=== PATIENT | female | born 1945 ===

== ENCOUNTER 2019-02-03 09:16 | Outpatient (CLI) | payer MEDICARE ==
[~2019-02-03] VITALS: Ht 157.5 cm; Wt 44.5 kg
== END 2019-02-03 11:16 | disposition home or self-care (01) ==
LOC: ECT 09:16
DX: F33.2 Major depressive disorder, recurrent severe without psychotic features (principal); Z86.711 Personal history of pulmonary embolism; M48.061 Spinal stenosis, lumbar region without neurogenic claudication; E03.9 Hypothyroidism, unspecified; E78.5 Hyperlipidemia, unspecified; G62.9 Polyneuropathy, unspecified; Z91.5 Personal history of self-harm; Z88.8 Allergy status to other drugs, medicaments and biological substances; Z79.01 Long term (current) use of anticoagulants

== ENCOUNTER 2019-02-04 07:40 | Outpatient (RCR) | payer MEDICARE ==
[~2019-02-04] VITALS: Ht 157.5 cm; Wt 44.5 kg
[~2019-02-04 07:40] MED LIST: Methohexital Sodium Syr 100mg/10ml IVP ONE; NS 500ML ONE; Succinylcholine 20mg/ml 10ml vial ONE
[2019-02-04 11:05] VITALS: BP 137/75
[2019-02-04 11:20] VITALS: BP 159/73
[2019-02-04 11:25] VITALS: BP 148/70
[2019-02-04 11:30] VITALS: BP 150/73
[2019-02-04 11:35] VITALS: BP 155/68
[2019-02-04 11:37] VITALS: BP 137/75
[2019-02-06] MEDS ORDERED: Succinylcholine 20mg/ml 10ml vial ONE (08:00)
[2019-02-06] MEDS ORDERED: NS 500ML ONE (08:00)
[2019-02-06] MEDS ORDERED: Methohexital Sodium Syr 100mg/10ml IVP ONE (08:00)
[2019-02-06 08:49] VITALS: BP 133/72
[2019-02-06 09:00] VITALS: BP 151/68
[2019-02-06 09:05] VITALS: BP 145/71
[2019-02-06 09:10] VITALS: BP 155/67
[2019-02-06 09:15] VITALS: BP 155/65
[2019-02-09] MEDS ORDERED: Succinylcholine 20mg/ml 10ml vial ONE (08:00)
[2019-02-09] MEDS ORDERED: NS 500ML ONE (08:00)
[2019-02-09] MEDS ORDERED: Methohexital Sodium Syr 100mg/10ml IVP ONE (08:00)
[2019-02-09 09:14] VITALS: BP 136/77
[2019-02-09 09:30] VITALS: BP 139/69
[2019-02-09 09:35] VITALS: BP 137/67
[2019-02-09 09:40] VITALS: BP 149/63
[2019-02-09 09:45] VITALS: BP 144/62
[2019-02-11] MEDS ORDERED: NS 500ML ONE (06:00)
[2019-02-11] MEDS ORDERED: Succinylcholine 20mg/ml 10ml vial ONE (06:00)
[2019-02-11] MEDS ORDERED: Methohexital Sodium Syr 100mg/10ml IVP ONE (06:00)
[2019-02-11 09:09] VITALS: BP 139/74
[2019-02-11 09:22] VITALS: BP 147/74
[2019-02-11 09:27] VITALS: BP 145/71
[2019-02-11 09:32] VITALS: BP 157/72
[2019-02-11 09:37] VITALS: BP 161/69
[2019-02-13] MEDS ORDERED: Methohexital Sodium Syr 100mg/10ml IVP ONE (06:00)
[2019-02-13] MEDS ORDERED: NS 500ML ONE (06:00)
[2019-02-13] MEDS ORDERED: Succinylcholine 20mg/ml 10ml vial ONE (06:00)
[2019-02-13 08:34] VITALS: BP 127/75
[2019-02-13 08:50] VITALS: BP 151/75
[2019-02-13 08:55] VITALS: BP 142/75
[2019-02-13 09:00] VITALS: BP 135/73
[2019-02-13 09:05] VITALS: BP 137/74
[2019-02-16 09:23] VITALS: BP 129/86
[2019-02-16 09:39] VITALS: BP 163/71
[2019-02-16 09:44] VITALS: BP 148/71
[2019-02-16 09:49] VITALS: BP 143/73
[2019-02-16 09:54] VITALS: BP 144/68
[2019-02-18 08:53] VITALS: BP 132/79
[2019-02-18] MEDS ORDERED: Methohexital Sodium Syr 100mg/10ml IVP ONE (09:00)
[2019-02-18] MEDS ORDERED: NS 500ML ONE (09:00)
[2019-02-18] MEDS ORDERED: Succinylcholine 20mg/ml 10ml vial ONE (09:00)
[2019-02-18 09:07] VITALS: BP 135/73
[2019-02-18 09:12] VITALS: BP 149/81
[2019-02-18 09:17] VITALS: BP 152/74
[2019-02-18 09:22] VITALS: BP 145/79
[2019-02-23] MEDS ORDERED: Succinylcholine 20mg/ml 10ml vial ONE (06:00)
[2019-02-23] MEDS ORDERED: NS 500ML ONE (06:00)
[2019-02-23] MEDS ORDERED: Methohexital Sodium Syr 100mg/10ml IVP ONE (06:00)
[2019-02-23 09:01] VITALS: BP 145/78
[2019-02-23 09:13] VITALS: BP 162/77
[2019-02-23 09:18] VITALS: BP 142/76
[2019-02-23 09:23] VITALS: BP 143/71
[2019-02-23 09:28] VITALS: BP 144/62
[2019-02-24] MEDS ORDERED: Succinylcholine 20mg/ml 10ml vial ONE (06:00)
[2019-02-24] MEDS ORDERED: Methohexital Sodium Syr 100mg/10ml IVP ONE (06:00)
[2019-02-24] MEDS ORDERED: NS 500ML ONE (06:00)
[2019-02-25] MEDS ORDERED: Methohexital Sodium Syr 100mg/10ml IVP ONE (06:00)
[2019-02-25] MEDS ORDERED: NS 500ML ONE (06:00)
[2019-02-25] MEDS ORDERED: Succinylcholine 20mg/ml 10ml vial ONE (06:00)
[2019-02-25] MEDS ORDERED: Ketamine 500mg Inj ONE (06:00)
[2019-02-25 09:14] VITALS: BP 118/77
[2019-02-25 09:30] VITALS: BP 138/64
[2019-02-25 09:35] VITALS: BP 142/70
[2019-02-25 09:40] VITALS: BP 142/70
[2019-02-25 09:45] VITALS: BP 137/71
== END 2019-02-25 | disposition home or self-care (01) ==
LOC: ECT 07:40
DX: F33.2 Major depressive disorder, recurrent severe without psychotic features (principal)
CPT/HCPCS: 90870; J0330; J3490; J7040

== ENCOUNTER 2019-02-27 04:40 | Outpatient (RCR) | payer MEDICARE ==
[~2019-02-27] VITALS: Ht 157.5 cm; Wt 44.5 kg
[2019-02-27] MEDS ORDERED: Succinylcholine 20mg/ml 10ml vial ONE ×2 (04:41)
[2019-02-27] MEDS ORDERED: NS 500ML ONE ×2 (04:41)
[2019-02-27] MEDS ORDERED: Ketamine 500mg Inj ONE (04:41)
[2019-02-27] MEDS ORDERED: Methohexital Sodium Syr 100mg/10ml IVP ONE (04:41)
[2019-03-02] MEDS ORDERED: NS 500ML ONE (06:00)
[2019-03-02] MEDS ORDERED: Ketamine 500mg Inj ONE (06:00)
[2019-03-02] MEDS ORDERED: Succinylcholine 20mg/ml 10ml vial ONE (06:00)
[2019-03-02 10:36] VITALS: BP 140/81
[2019-03-02 10:50] VITALS: BP 159/76
[2019-03-02 10:55] VITALS: BP 153/76
[2019-03-02 11:00] VITALS: BP 160/71
[2019-03-02 11:05] VITALS: BP 172/79
[2019-03-04] MEDS ORDERED: Ketamine 500mg Inj ONE (06:00)
[2019-03-04] MEDS ORDERED: Succinylcholine 20mg/ml 10ml vial ONE (06:00)
[2019-03-04] MEDS ORDERED: NS 500ML ONE (06:00)
[2019-03-04 10:09] VITALS: BP 122/73
[2019-03-04 10:25] VITALS: BP 148/75
[2019-03-04 10:30] VITALS: BP 148/75
[2019-03-04 10:35] VITALS: BP 158/76
[2019-03-04 10:40] VITALS: BP 144/95
[2019-03-06 08:57] VITALS: BP 147/83
[2019-03-06 09:09] VITALS: BP 194/85
[2019-03-06 09:14] VITALS: BP 180/72
[2019-03-06 09:19] VITALS: BP 188/95
[2019-03-06 09:24] VITALS: BP 149/75
[2019-03-11] VITALS (7 sets, daily range): BP systolic 139–154; BP diastolic 66–79
[2019-03-11] MEDS ORDERED: Succinylcholine 20mg/ml 10ml vial ONE (08:00)
[2019-03-11] MEDS ORDERED: Methohexital Sodium Syr 100mg/10ml IVP ONE (08:00)
[2019-03-11] MEDS ORDERED: NS 500ML ONE (08:00)
[2019-03-18 11:03] VITALS: BP 119/71
[2019-03-18 11:15] VITALS: BP 122/78
[2019-03-18 11:20] VITALS: BP 139/73
[2019-03-18 11:25] VITALS: BP 141/56
[2019-03-18 11:30] VITALS: BP 140/44
[2019-03-25] MEDS ORDERED: Methohexital Sodium Syr 100mg/10ml IVP ONE (07:00)
[2019-03-25] MEDS ORDERED: Succinylcholine 20mg/ml 10ml vial ONE (07:00)
[2019-03-25] MEDS ORDERED: NS 500ML ONE (07:00)
[2019-03-25 10:07] VITALS: BP 131/68
[2019-03-25 10:30] VITALS: BP 138/61
[2019-03-25 10:35] VITALS: BP 134/63
[2019-03-25 10:40] VITALS: BP 137/59
[2019-03-25 10:45] VITALS: BP 139/64
== END 2019-03-28 | disposition home or self-care (01) ==
LOC: ECT 04:40
DX: F33.2 Major depressive disorder, recurrent severe without psychotic features (principal)
CPT/HCPCS: 90870; J0330; J2405; J3490; J7040

== ENCOUNTER 2019-04-08 05:06 | Outpatient (RCR) | payer MEDICARE ==
[~2019-04-08] VITALS: Ht 157.5 cm; Wt 44.6 kg
[2019-04-08] MEDS ORDERED: NS 500ML ONE (05:07)
[2019-04-08] MEDS ORDERED: Succinylcholine 20mg/ml 10ml vial ONE (05:07)
[2019-04-08] MEDS ORDERED: Methohexital Sodium Syr 100mg/10ml IVP ONE (05:07)
[2019-04-08 10:02] VITALS: BP 137/82
[2019-04-08 10:15] VITALS: BP 157/74
[2019-04-08 10:20] VITALS: BP 149/81
[2019-04-08 10:25] VITALS: BP 142/80
[2019-04-08 10:30] VITALS: BP 136/70
== END 2019-04-27 | disposition home or self-care (01) ==
LOC: ECT 05:06
DX: F33.2 Major depressive disorder, recurrent severe without psychotic features (principal)
CPT/HCPCS: 90870; J0330; J2405; J7040